=== PATIENT | male | born 1950 | race Caucasian/White ===

== ENCOUNTER → 2018-06-06 10:05 | Outpatient (CLI) | payer MEDICARE, OTHER, SELFPAY ==
[2018-06-06 11:25] LABS: Blood Urea Nitrogen 21 mg/dL (9-20); Estimated Glomerular Filt Rate > 60.0 mL/min (>60)
== END ==
PROVIDERS: Visit Provider Urology
DX: N39.0 Urinary tract infection, site not specified (principal)
CPT/HCPCS: 36415; 82565; 84520

== ENCOUNTER → 2018-06-07 12:07 | Outpatient (CLI) | payer MEDICARE, OTHER, SELFPAY ==
--- NOTE | 2018-06-07 | DI.CT.S_ITS ---
PROCEDURE: CT ABDOMEN PELVIS WO/W CON INDICATIONS: urinary infections TECHNIQUE: Optional 5 mm thick noncontrast images acquired from the diaphragm to the symphysis pubis. After the administration of intravenous contrast, 5 mm thick images acquired from the diaphragm to the symphysis pubis after a 10-minute delay. 2 mm thick coronal and sagittal reformats were then performed of the kidneys and ureters. For radiation dose reduction, the following was used: automated exposure control, adjustment of mA and/or kV according to patient size. COMPARISON: None. FINDINGS: Image quality: Excellent. Lung bases: Lung bases are clear. Heart size is normal. Urinary system: Both kidneys are normal in size, without hydronephrosis or nephrolithiasis on pre-contrast images. No perinephric fat stranding. There is normal bilateral renal enhancement. Renal calyces appear normal in morphology when filled with contrast. Opacified portions of both ureters demonstrate normal caliber. Bladder wall thickness is normal but there are multiple lateral and posterior bladder diverticula the largest of which is located posteriorly at the midline, and measuring up to 3.6 cm in maximal dimension.. No calcified bladder stones. Other solid organs: Liver is normal in size and enhancement. Gallbladder appears normal. Biliary system is non dilated. Pancreas enhances normally. Spleen is normal in size and enhancement. No adrenal nodules. Peritoneum and bowel: Bowel loops demonstrate normal wall thickness and caliber. No free fluid or air. Nodes and vessels: No retroperitoneal or mesenteric adenopathy by size criteria. Aorta and inferior vena cava are normal in size. Abdominal wall: No ventral hernias. Pelvis: No pathologic free pelvic fluid. No inguinal hernias or adenopathy. Bones: No suspicious bony lesions. No vertebral body compression fractures. IMPRESSION: No hydronephrosis or nephrolithiasis is found. Bladder diverticula are prominent in this patient, small and moderate in size in the largest measuring 3.6 cm. No adjacent inflammation is seen. The source of recurrent urinary tract infections otherwise is not found. Dictated by: Hiram Javier M.D. on 06/07/2018 at 14:51 Approved by: Hiram Javier M.D. on 06/07/2018 at 14:55
== END ==
PROVIDERS: Visit Provider Physician Assistant
DX: N39.0 Urinary tract infection, site not specified (principal); N32.3 Diverticulum of bladder
CPT/HCPCS: 74178; Q9967

== ENCOUNTER → 2018-07-27 10:50 | Outpatient (CLI) | payer MEDICARE, OTHER, SELFPAY ==
[2018-07-27 13:09] LABS: Alanine Aminotransferase 34 IU/L (21-72); Albumin 4.4 g/dL (3.5-5.0); Albumin Globulin Ratio 2.1 (1.0-2.8); Alkaline Phosphatase 48 U/L (38-126); Aspartate Aminotransferase 28 IU/L (17-59); BUN Creatinine Ratio 21.1 (6-22); Bilirubin Total 0.7 mg/dL (0.2-1.3); Blood Urea Nitrogen 19 mg/dL (9-20); Calcium 9.1 mg/dL (8.4-10.2); Carbon Dioxide 30 mmol/L (22-32); Chloride 103 mmol/L (98-107); Estimated Glomerular Filt Rate > 60.0 mL/min (>60); Globulin 2.1 g/dL (1.7-4.1); Glucose 102 mg/dL (80-110); HEMOLYSIS < 15 (0-50); Magnesium 2.1 mg/dL (1.6-2.3); Potassium 5.3 mmol/L (3.4-5.1); Sodium 143 mmol/L (137-145); Total Protein 6.5 g/dL (6.3-8.2)
[2018-07-31 08:55] LABS: Lipoprofile NMR SEE SEPERATE REPORT
== END ==
PROVIDERS: Visit Provider Specialist
DX: E78.2 Mixed hyperlipidemia (principal); I49.9 Cardiac arrhythmia, unspecified; I47.1 Supraventricular tachycardia
CPT/HCPCS: 36415; 80053; 83704; 83735

== ENCOUNTER → 2019-01-22 15:27 | Outpatient (CLI) | payer MEDICARE, OTHER, SELFPAY ==
[2019-01-22 17:04] LABS: Alanine Aminotransferase 50 IU/L (21-72); Albumin 4.5 g/dL (3.5-5.0); Alkaline Phosphatase 57 U/L (38-126); Aspartate Aminotransferase 48 IU/L (17-59); BUN Creatinine Ratio 18.9 (6-22); Blood Urea Nitrogen 17 mg/dL (9-20); Calcium 9.4 mg/dL (8.4-10.2); Carbon Dioxide 28 mmol/L (22-32); Chloride 105 mmol/L (98-107); Cholesterol 165 mg/dL (140-199); Estimated Glomerular Filt Rate > 60.0 mL/min (>60); Globulin 2.2 g/dL (1.7-4.1); Glucose 92 mg/dL (80-110); HDL Cholesterol 92 mg/dL (40-60); HEMOLYSIS < 15 (0-50); LDL Cholesterol Calculated 62 mg/dL (<100); Magnesium 1.9 mg/dL (1.6-2.3); Potassium 4.3 mmol/L (3.4-5.1); Sodium 141 mmol/L (137-145); Total Protein 6.7 g/dL (6.3-8.2); Triglycerides 54 mg/dL (35-150)
[2019-01-24 09:11] LABS: Lipoprofile NMR SEE SEPERATE REPORT
== END ==
PROVIDERS: Visit Provider Physician Assistant Medical
DX: I10 Essential (primary) hypertension (principal); E78.2 Mixed hyperlipidemia
CPT/HCPCS: 36415; 80053; 80061; 83704; 83735

== ENCOUNTER → 2019-05-25 11:22 | Outpatient (CLI) | payer MEDICARE, OTHER, SELFPAY ==
[2019-05-25 13:37] LABS: Prostate Specific Antigen 0.561 ng/mL (0.10-4.00)
== END ==
PROVIDERS: Visit Provider Physician Assistant
DX: N40.0 Benign prostatic hyperplasia without lower urinary tract symptoms (principal)
CPT/HCPCS: 36415; 84153

== ENCOUNTER → 2019-06-21 13:18 | Outpatient (CLI) | payer MEDICARE, OTHER, SELFPAY ==
--- NOTE | 2019-06-21 | DI.ECHO.S_ITS ---
[facility]---------+ [facility] +---------+ : : [address] : [place] : : : : [id number] : : : : Phone: [phone]+ Echocardiogram Report + + :Name: ANABEL MASCORRO Study Date: 06/21/2019 Height: 72 in : :[facility] Weight: 190 lb : : Gender: Male BSA: 2.1 m2 : :: 1950 Age: 68 yrs BP: 116/78 mmHg: :Reason For Study: Mitral Valve- Regurgitation : : Performed By: [facility] Staff : :Referring: PIYUSH BASURTO : + + Interpretation Summary The left ventricle is normal in size, wall thickness, and systolic function without any focal wall motion abnormalities with the ejection fraction visually estimated to be 65-70%. Diastolic parameters suggest a relaxation abnormality of the left ventricle, consistent with probable normal filling pressures, although perhaps slightly higher compared to the previous study. The right ventricle is normal in size and function and is unchanged compared to the previous study. The right ventricular systolic pressure is estimated to be at least 22 mmHg based on an estimated right atrial pressure of 3 mm Hg, and is likely unchanged from the previous study. The left atrium is borderline dilated and is unchanged compared to the previous study. The right atrium is mildly dilated and is mildly increased compared to the previous study. The mitral valve leaflets appear moderately thickened with mild bileaflet prolapse, anterior leaflet more prominent than posterior leaflet, that appears unchanged from the previous study and producing moderate mitral regurgitation with an eccentric jet of mitral regurgitation that is directed posterolaterally. This appears similar, perhaps slightly more prominent, compared to the previous study. There is mild pulmonic regurgitation. There is no other significant valvular heart disease. The aortic root is mildly dilated and the ascending aorta is at the upper limits of normal in size but both are grossly unchanged compared to the previous study. Procedure: A two-dimensional transthoracic echocardiogram with color flow and Doppler was performed. The study quality was technically adequate. Prior echo performed on 07/25/18. The patient was in normal sinus rhythm during the exam. Left Ventricle: The left ventricle is normal in size, wall thickness, and systolic function without any focal wall motion abnormalities. The ejection fraction is estimated to be 65-70%. Diastolic parameters suggest a relaxation abnormality of the left ventricle, consistent with probable normal filling pressures. This is although perhaps slightly higher compared to the previous study. Right Ventricle: The right ventricle is normal in size and function. This is unchanged compared to the previous study. Atria: The left atrium is borderline dilated. This is unchanged compared to the previous study. The right atrium is mildly dilated. This is mildly increased compared to the previous study. The interatrial septum is intact with no evidence for an atrial septal defect. Mitral Valve: The mitral valve leaflets appear moderately thickened, but open well. There is mild mitral valve prolapse. 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 There is moderate mitral regurgitation. There is an eccentric jet of mitral regurgitation that is directed posterolateral. This is similar, perhaps slightly more prominent, compared to the previous study. Aortic Valve: The aortic valve is trileaflet. The aortic valve opens well. There is trace aortic regurgitation. Tricuspid Valve: The tricuspid valve is normal in structure and function. There is trace tricuspid regurgitation. The right ventricular systolic pressure is estimated to be at least 22 mmHg based on an estimated right atrial pressure of 3 mm Hg. Pulmonic Valve: The pulmonic valve is normal in structure and function. There is mild pulmonic regurgitation. There is no other significant valvular heart disease. Great Vessels: The aortic root is mildly dilated. The ascending aorta is at the upper limits of normal in size. This is unchanged compared to the previous study. The pulmonary artery is normal size. The IVC is of normal diameter and collapses greater than 50% with a sniff. This suggests a low right atrial pressure of 3 mm Hg. Pericardium/ Pleura There is no pericardial effusion. There is no pleural effusion. MMode/2D Measurements & Calculations LVIDd: 5.2 cm LVOT diam: 2.2 cm LVIDs: 3.1 cm Ao root diam: 3.7 cm FS: 40.3 % asc Aorta Diam: 3.3 cm EPSS: 0.40 cm IVSd: 0.91 cm LVPWd: 1.0 cm LV michele. diameter/BSA (cm/m^2): 2.5 LV sys. diameter/BSA (cm/m^2): 1.5 LA A2 area: 19.2 cm2 RA long axis: 5.8 cm LA A4 area: 25.0 cm2 RA area: 22.9 cm2 LA length (vol): 6.0 cm RA vol: 76.7 ml LA vol: 68.2 ml RA : 36.8 ml/m2 LA vol index: 32.7 ml/m2 TAPSE: 3.2 cm Doppler Measurements & Calculations Ao V2 max: 147.6 cm/sec LVOT Max Vargas: 113.9 cm/sec Ao V2 mean: 88.9 cm/sec LV V1 max P.2 mmHg Ao max P.7 mmHg LV V1 VTI: 25.6 cm Ao mean P.9 mmHg JAYJAY(I,D): 3.1 cm2 Ao V2 VTI: 30.6 cm JAYJAY(V,D): 2.9 cm2 sev ratio: 0.84 JAYJAY indexed to BSA (cm^2/m^2): 1.5 MV E max vargas: 109.0 cm/sec TR max vargas: 217.1 cm/sec MV A max vargas: 127.1 cm/sec TR max P.9 mmHg MV E/A: 0.86 PA V2 max: 56.5 cm/sec Med Peak E' Vargas: 6.9 cm/sec PA V2 mean: 42.1 cm/sec E/E' med: 15.8 PA mean P.80 mmHg Lat Peak E' Vargas: 6.5 cm/sec PA Accel Time: 0.17 sec E/E' lat: 16.8 E/e' average: 16.3 MV dec time: 0.39 sec SV(LVOT): 95.7 ml Reading Physician:AM
== END ==
PROVIDERS: Visit Provider Specialist
DX: I34.0 Nonrheumatic mitral (valve) insufficiency (principal); I34.1 Nonrheumatic mitral (valve) prolapse; I37.1 Nonrheumatic pulmonary valve insufficiency; I47.1 Supraventricular tachycardia; I49.9 Cardiac arrhythmia, unspecified; I10 Essential (primary) hypertension
CPT/HCPCS: 93306

== ENCOUNTER → 2019-06-22 08:43 | Outpatient (CLI) | payer MEDICARE, OTHER, SELFPAY ==
[2019-06-22 10:17] LABS: Alanine Aminotransferase 42 IU/L (<50); Albumin 4.3 g/dL (3.5-5.0); Alkaline Phosphatase 54 U/L (38-126); Aspartate Aminotransferase 39 IU/L (17-59); Bilirubin Total 0.7 mg/dL (0.2-1.3); Blood Urea Nitrogen 16 mg/dL (9-20); Calcium 9.2 mg/dL (8.4-10.2); Carbon Dioxide 28 mmol/L (22-32); Chloride 102 mmol/L (98-107); Estimated Glomerular Filt Rate > 60.0 mL/min (>60); Globulin 2.1 g/dL (1.7-4.1); Glucose 116 mg/dL (80-110); HEMOLYSIS < 15 (0-50); Potassium 4.6 mmol/L (3.4-5.1); Sodium 138 mmol/L (137-145); Total Protein 6.4 g/dL (6.3-8.2)
[2019-06-25 10:26] LABS: Lipoprofile NMR SEE SEPARATE REPORTS
== END ==
PROVIDERS: Visit Provider Specialist
DX: I49.9 Cardiac arrhythmia, unspecified (principal); I10 Essential (primary) hypertension; I47.1 Supraventricular tachycardia; E78.2 Mixed hyperlipidemia
CPT/HCPCS: 36415; 80053; 83704; 83735

== ENCOUNTER → 2020-03-24 08:23 | Outpatient (CLI) | payer MEDICARE, OTHER, SELFPAY ==
[2020-03-24 09:04] LABS: Add Manual Diff / Slide Review NO; Basophils Absolute Auto 0 /uL (0-100); Basophils Percent Auto 0.2 % (0-2); Eosinophils Absolute Auto 300 /uL (0-450); Eosinophils Percent Auto 6.8 % (2-4); Hematocrit 41.9 % (41-53); Hemoglobin 14.6 g/dL (13.5-17.5); Lymphocytes Absolute Auto 1000 /uL (1100-4500); Lymphocytes Percent Auto 25.2 % (25-40); Mean Corpuscular HGB Conc 34.8 % (30-36); Mean Corpuscular Hemoglobin 30.4 PG (26-34); Mean Corpuscular Volume 87.4 fL (80-100); Monocytes Absolute Auto 300 /uL (0-900); Monocytes Percent Auto 8.1 % (3-14); Neutrophils Absolute Auto 2400 /uL (1500-7000); Neutrophils Percent Auto 59.7 % (50-75); Platelet Count 185 X10^3/uL (150-400); Red Blood Cell Count 4.79 X10^6/uL (4.5-5.9); Red Cell Distribution Width 14.1 % (11.6-14.8); White Blood Cell Count 4.1 X10^3/uL (4.5-11.0)
[2020-03-24 09:32] LABS: Alanine Aminotransferase 44 IU/L (<50); Albumin 4.2 g/dL (3.5-5.0); Albumin Globulin Ratio 1.9 (1.0-2.8); Alkaline Phosphatase 55 U/L (38-126); Aspartate Aminotransferase 39 IU/L (17-59); BUN Creatinine Ratio 20.5 (6-22); Bilirubin Total 0.8 mg/dL (0.2-1.3); Blood Urea Nitrogen 18 mg/dL (9-20); Carbon Dioxide 26 mmol/L (22-32); Chloride 105 mmol/L (98-107); Estimated Glomerular Filt Rate > 60.0 mL/min (>60); Globulin 2.2 g/dL (1.7-4.1); Glucose 123 mg/dL (80-110); HEMOLYSIS < 15 (0-50); Potassium 4.4 mmol/L (3.4-5.1); Sodium 137 mmol/L (137-145); Total Protein 6.4 g/dL (6.3-8.2)
[2020-03-26 07:36] LABS: Cholesterol, Total 156 mg/dL (100-199); HDL-Cholesterol 76 mg/dL (>39); HDL-Particle (Total) 41.4 umol/L (>=30.5); Historical Reading Comment: (.); LDL Particle 853 nmol/L (<1000); LDL Size 20.7 nm (>20.5); LDL-Cholsterol 67 mg/dL (0-99); LP-IR Score 40 (<=45); Small LDL- Particle 488 nmol/L (<=527); Triglycerides 63 mg/dL (0-149)
== END ==
PROVIDERS: Referring Provider Specialist; Visit Provider Specialist
DX: I47.1 Supraventricular tachycardia (principal); E78.2 Mixed hyperlipidemia; I10 Essential (primary) hypertension
CPT/HCPCS: 36415; 80053; 80061; 83704; 83735; 85025

== ENCOUNTER → 2020-05-19 10:46 | Outpatient (CLI) | payer MEDICARE, OTHER, SELFPAY ==
[2020-05-19 12:49] LABS: Prostate Specific Antigen 0.489 ng/mL (0.10-4.00)
== END ==
PROVIDERS: Referring Provider Physician Assistant; Visit Provider Physician Assistant
DX: N40.0 Benign prostatic hyperplasia without lower urinary tract symptoms (principal)
CPT/HCPCS: 36415; 84153

== ENCOUNTER → 2020-09-02 07:42 | Outpatient (CLI) | payer MEDICARE, OTHER, SELFPAY ==
[2020-09-02] MEDS: COVID-19 VACC #1, MRNA(MOD) 100 MCG/0.5 ML VIAL IM (07:46)
== END ==
PROVIDERS: Visit Provider Internal Medicine
DX: Z23 Encounter for immunization (principal)
CPT/HCPCS: 0011A; 91301

== ENCOUNTER → 2020-09-30 07:34 | Outpatient (CLI) | payer MEDICARE, OTHER, SELFPAY ==
[2020-09-30] MEDS: COVID-19 VACC #2, MRNA(MOD) 100 MCG/0.5 ML VIAL IM (07:48)
== END ==
PROVIDERS: Visit Provider Internal Medicine
DX: Z23 Encounter for immunization (principal)
CPT/HCPCS: 0012A; 91301

== ENCOUNTER → 2021-02-23 08:27 | Outpatient (CLI) | payer MEDICARE, OTHER, SELFPAY ==
[2021-02-23 09:23] LABS: Hemoglobin A1C% w Est Avg Glu 4.9 % (4.0-6.0)
[2021-02-23 09:43] LABS: Alanine Aminotransferase 38 IU/L (<50); Albumin 3.9 g/dL (3.5-5.0); Albumin Globulin Ratio 1.9 (1.0-2.8); Alkaline Phosphatase 49 U/L (38-126); Aspartate Aminotransferase 41 IU/L (17-59); BUN Creatinine Ratio 16.3 (6-22); Bilirubin Total 0.6 mg/dL (0.2-1.3); Blood Urea Nitrogen 15 mg/dL (9-20); Calcium 9.1 mg/dL (8.4-10.2); Carbon Dioxide 29 mmol/L (22-32); Chloride 105 mmol/L (98-107); Estimated Glomerular Filt Rate > 60.0 mL/min (>60); Globulin 2.1 g/dL (1.7-4.1); Glucose 121 mg/dL (80-110); HEMOLYSIS < 15 (0-50); Magnesium 1.9 mg/dL (1.6-2.3); Potassium 5.2 mmol/L (3.4-5.1); Sodium 138 mmol/L (137-145)
[2021-02-25 07:36] LABS: Cholesterol, Total 146 mg/dL (100-199); HDL-Cholesterol 71 mg/dL (>39); HDL-Particle (Total) 39.4 umol/L (>=30.5); LDL Particle 537 nmol/L (<1000); LDL-Cholsterol 64 mg/dL (0-99); LP-IR Score 30 (<=45); Small LDL- Particle <90 nmol/L (<=527); Triglycerides 49 mg/dL (0-149)
== END ==
PROVIDERS: PCP Family Medicine; Visit Provider Specialist
DX: E78.00 Pure hypercholesterolemia, unspecified (principal); R73.9 Hyperglycemia, unspecified; I10 Essential (primary) hypertension; E78.5 Hyperlipidemia, unspecified
CPT/HCPCS: 36415; 80053; 80061; 83036; 83704; 83735

== ENCOUNTER 2021-08-03 07:43 | Day surgery (SDC) | payer MEDICARE, OTHER, SELFPAY ==
[2021-08-03 08:06] VITALS: BP 165/95; PULSE 66; RESP 16; TEMP 36.6; O2SAT 99; BMI 25.7
[2021-08-03 08:24] LABS: COVID19 -Nasal RAPID Negative (Negative)
[2021-08-03] MEDS: LACTATED RINGERS 1,000 ML 84 ML IV (08:25)
--- NOTE | 2021-08-03 09:11 | PM.HP.1 ---
History of Present Illness History of Present Illness Date Patient Seen: 08/03/21 Time Patient Seen: 09:11 Date of Onset of Symptoms: 08/03/21 Chief complaint: DX COLONOSCOPY Narrative: H/o colon polyps. Last scope 10 years. No family hx or symptoms concerning for colon cancer Patient History Medical History (Updated 04/19/21 @ 21:35 by Ting Stack) Hyperglycemia Hyperlipidemia Hypertension Surgical History (Updated 04/19/21 @ 21:35 by Ting Stack) Anesthesia History of hernia repair (~2011) History of knee surgery (~1981) S/P TURP (~2013) Family & Social History Social History: household members spouse Tobacco & Substance use: Smoking Status Former smoker alcohol intake current alcohol intake frequency 0-2 drinks per day Substance Use Type does not use Meds Home Medications and Allergies Home Medications Medication Instructions Recorded Confirmed Type atorvastatin PO 02/13/21 02/13/21 History carvedilol 3.125 mg tablet 3.125 mg PO BID 02/13/21 02/13/21 History Allergies Allergy/AdvReac Type Severity Reaction Status Date / Time No Known Drug Allergies Allergy Verified 08/03/21 08:04 Exam Vital Signs (past 8 hours): - 08/03/21 08:06 Temperature 97.8 F Pulse Rate 66 Respiratory Rate 16 Blood Pressure 165/95 H Pulse Oximetry 99 Oxygen Delivery Method Room Air Const General: cooperative and healthy appearing HENMT Head: normal to inspection and atraumatic Eyes General: appearance normal, both eyes and all related structures Sclera: sclerae normal Neck Neck: normal visual inspection and trachea midline Chest Chest: normal inspection of the chest Resp Effort & Inspection: normal respiratory effort and able to speak in complete sentences Auscultation: clear to auscultation bilaterally Cardio Rate: regular rate Rhythm: regular rhythm GI Palpation: soft Skin General: no rashes or lesions noted Neuro General: patient alert and patient oriented x3 Cognition: normal cognition Extrem General: full ROM Psych Appearance: grossly normal Affect: normal affect Judgment: judgment good Objective Labs Labs: Laboratory Results - last 24 hr 08/03/21 07:33 SARS-CoV-2 (PCR) Negative Assessment & Plan Assessment & Plan narrative: H/o colon polyps colonoscopy with moderate sedation COVID-19 COVID-19 status: Negative Time Spent With Patient Critical Care time: I spent a total of [] minutes of critical care time on this patient's care today; this time is exclusive of procedural time.
[2021-08-03] MEDS: MIDAZOLAM 5 MG/5 ML VIAL IV (09:15)
[2021-08-03] MEDS: fentaNYL 250 MCG/5 ML INJ IV (09:23)
--- NOTE | 2021-08-03 09:29 | P.OP.ENDO_ITS ---
Operative Date/Time/Diagnoses Date of procedure: 08/03/21 Time of procedure: 09:29 Pre-op diagnosis: h/o colon polyps (likely benign) Post-op diagnosis: same Procedure & Clinicians Study performed: Colonoscopy with moderate sedation Same procedure as scheduled: Yes Indications: History of colon polyps Surgeon: Valencia Rhoades Procedure Notes SCOAP/Timeout: Done Procedure in detail: Prep diagnosis: History of colon polyps Postop diagnosis: Same Operative procedure: Colonoscopy with moderate sedation Surgeon: Tsering Rhoades MD Findings: Pandiverticulosis, no polyps. Procedure: Patient placed in a lateral position. Rectal exam performed showing normal tone no masses. Colonoscope inserted into the rectum and advanced to ileocecal valve with minimal difficulty. Insufflation extractions scope inclu ding retroflex and the above findings. Impression: No polyps. Loya diverticulosis of the large variety Plan: Repeat colonoscopy 10 years unless otherwise indicated by change in clinical condition Findings: diverticulosis Specimen(s): none sent Complications: none Impression: Significant diverticulosis throughout the colon. No polyps Post-procedure Recommendations: Colonscopy in 10 years Follow up: as needed Disposition: PACU
[2021-08-03 09:34] VITALS: BP 138/80; PULSE 61; RESP 12; TEMP 36.4; O2SAT 93
[2021-08-03 09:38] VITALS: BP 128/81; PULSE 59; RESP 14; O2SAT 94
[2021-08-03 09:43] VITALS: BP 127/80; PULSE 61; RESP 15; O2SAT 96
[2021-08-03 09:48] VITALS: BP 132/90; PULSE 65; RESP 16; TEMP 36.4; O2SAT 95
[2021-08-03 09:55] VITALS: BP 142/82; PULSE 61; RESP 16; O2SAT 97
== END 2021-08-03 10:07 | disposition home or self-care (01) ==
PROVIDERS: PCP Family Medicine; Referring Provider Surgery; Visit Provider Surgery
PROC: 0DJD8ZZ Inspection of Lower Intestinal Tract, Via Natural or Artificial Opening Endoscopic (ICD-10-PCS; CPT 45378; principal; 2021-08-03 09:15)
DX: Z12.11 Encounter for screening for malignant neoplasm of colon (principal); Z86.010 Personal history of colon polyps; I10 Essential (primary) hypertension; E78.5 Hyperlipidemia, unspecified; K57.30 Diverticulosis of large intestine without perforation or abscess without bleeding
CPT/HCPCS: G0105; 87635; J2250; J3010

== ENCOUNTER → 2021-08-11 12:28 | Outpatient (CLI) | payer MEDICARE, OTHER, SELFPAY | PROVIDERS: PCP Family Medicine; Referring Provider Urology; Visit Provider Urology | DX: N40.1 Benign prostatic hyperplasia with lower urinary tract symptoms (principal) | CPT/HCPCS: 36415; 84153 ==

== ENCOUNTER → 2021-11-09 15:40 | Outpatient (CLI) | payer MEDICARE, OTHER, SELFPAY ==
[2021-11-10 12:12] LABS: Rubeola Measles IgG > 300.0 AU/mL (Immune >16.4)
[2021-11-11 10:35] LABS: QuantiFERON Mitogen Value >10.00 IU/mL (.); QuantiFERON Nil Value 0.09 IU/mL (.); QuantiFERON TB Gold Plus Negative (Negative); QuantiFERON TB1 Ag Value 0.07 IU/mL (.); QuantiFERON TB2 Ag Value 0.05 IU/mL (.)
== END ==
PROVIDERS: PCP Family Medicine; Referring Provider Family Medicine; Visit Provider Family Medicine
DX: Z11.1 Encounter for screening for respiratory tuberculosis (principal); Z28.39 Other underimmunization status
CPT/HCPCS: 36415; 86480; 86735; 86762; 86765

== ENCOUNTER → 2022-03-29 10:20 | Outpatient (CLI) | payer MEDICARE, OTHER, SELFPAY ==
--- NOTE | 2022-03-29 | DI.ECHO.S_ITS ---
[facility]---------+ [facility] +---------+ : : [address] : [place] : : : : [id number] : : : : Phone: [phone]+ Echocardiogram Report + + :Name: ANABEL MASCORRO Study Date: 03/29/2022 Height: 72 in : :[facility] ReadingLocation: Weight: 195 lb : : Gender: Male BSA: 2.1 m2 : :: 1950 Age: 71 yrs BP: 158/100 mmHg: :Reason For Study: Mitral Valve- Regurgitation : :Ordering Physician: SB, : :PIYUSH Performed By: Christiano Luna : :Referring: PIYUSH BASURTO : + + Interpretation Summary Left ventricular size and function remain normal with an estimated ejection fraction of 60 to 65% without any focal abnormality and appears unchanged from the previous study. Wall thickness remains normal with a probable diastolic relaxation abnormality with probable normal filling pressures, possibly slightly lower compared to the previous exam. The right ventricle remains normal and unchanged from the previous study. Right ventricular systolic pressure cannot be estimated but CVP is likely around 8 mmHg, possibly slightly higher compared to the previous study. There is borderline left atrial enlargement which is unchanged. The right atrium measures normal in size and smaller compared to the previous study. The mitral valve leaflets are moderately thickened with bileaflet mitral valve prolapse that appears unchanged from the previous study. Mild mitral regurgitation is apparent but appears less impressive compared to the previous exam although it is less well visualized and characterized compared to the previous exam. There is no other significant valvular disease. The aortic root and ascending aorta are borderline enlarged but unchanged from the previous study. Procedure: A two-dimensional transthoracic echocardiogram with color flow and Doppler was performed. The study quality was technically adequate. Comparison is made with the echocardiogram of 06/21/2019. The patient was in normal sinus rhythm during the exam. Left Ventricle: The left ventricle is normal in size and wall thickness. The ejection fraction is estimated to be 60-65%. This is unchanged compared to the previous study. Diastolic function could not be accurately assessed due to unobtainable data. Diastolic parameters suggest a relaxation abnormality of the left ventricle, consistent with probable normal filling pressures. This is possibly lower compared to the previous study. Right Ventricle: The right ventricle is normal in size and function. This is unchanged compared to the previous study. Atria: The left atrium is borderline dilated. This is unchanged compared to the previous study. Right atrial size is normal. XAVI is 24.7 mL/mA? compared to 36.8 mL/mA? previously. The interatrial septum grossly appears intact with no obvious evidence for an atrial septal defect. Mitral Valve: The mitral valve leaflets appear moderately thickened, but open well. There is mild mitral valve prolapse. There is mild mitral regurgitation. This is less impressive, but less well chararcterized and visualized compared to the previous study. Aortic Valve: The aortic valve is trileaflet. The aortic valve is slightly calcified. The aortic valve opens well. There is trace aortic regurgitation. Tricuspid Valve: The tricuspid valve is normal in structure and function. There is a trace or physiologic amount of tricuspid regurgitation. This is unchanged compared to the previous study. Pulmonary artery pressures cannot be estimated because of the lack of a measurable TR jet velocity but the IVC suggests a CVP of around 8 mmHg. This is possibly slightly higher compared to the previous study. Pulmonic Valve: The pulmonic valve is normal in structure and function. There is a trace or physiologic amount of pulmonic regurgitation. Great Vessels: The aortic root is borderline dilated. The ascending aorta is at the upper limits of normal in size. This is unchanged compared to the previous study. The IVC is dilated (diameter is greater than 2.1 cm) yet it collapses greater than 50% with a sniff. This suggests a right atrial pressure of 8 mm Hg. Pericardium/ Pleura There is no pericardial effusion. There is no pleural effusion. MMode/2D Measurements & Calculations LVIDd: 5.6 cm LVOT diam: 2.2 cm LVIDs: 3.4 cm Ao root diam: 3.7 cm FS: 39.3 % asc Aorta Diam: 3.3 cm IVSd: 0.90 cm LVPWd: 0.90 cm LV michele. diameter/BSA (cm/m^2): 2.7 LV sys. diameter/BSA (cm/m^2): 1.6 LA dimension: 3.9 cm RA long axis: 5.6 cm LA A2 area: 23.5 cm2 LA A4 area: 20.8 cm2 LA length (vol): 5.7 cm LA vol: 73.4 ml LA vol index: 34.8 ml/m2 TAPSE_phl: 3.0 cm Doppler Measurements & Calculations Ao V2 max: 118.0 cm/sec LVOT Max Vargas: 117.0 cm/sec Ao V2 mean: 86.8 cm/sec LV V1 max P.5 mmHg Ao max P.0 mmHg LV V1 VTI: 23.9 cm Ao mean P.0 mmHg JAYJAY(I,D): 3.8 cm2 Ao V2 VTI: 24.2 cm JAYJAY(V,D): 3.8 cm2 sev ratio: 0.99 JAYJAY indexed to BSA (cm^2/m^2): 1.8 MV E max vargas: 85.4 cm/sec SV(LVOT): 90.9 ml MV A max vargas: 109.0 cm/sec MV E/A: 0.78 Med Peak E' Vargas: 8.1 cm/sec E/E' med: 10.5 Lat Peak E' Vargas: 9.7 cm/sec E/E' lat: 8.8 E/e' average: 9.7 MV dec time: 0.28 sec AV VR_phl: 0.99 MV P1/2t-pr_phl: 81.0 msec JAYJAY(VTI)/BSA_phl: 1.8 Reading Physician:09:18 AM
[2022-03-29 12:08] LABS: Alanine Aminotransferase 36 IU/L (<50); Albumin 4.2 g/dL (3.5-5.0); Albumin Globulin Ratio 1.9 (1.0-2.8); Alkaline Phosphatase 53 U/L (38-126); Aspartate Aminotransferase 35 IU/L (17-59); Bilirubin Total 1.1 mg/dL (0.2-1.3); Blood Urea Nitrogen 12 mg/dL (9-20); Calcium 8.6 mg/dL (8.4-10.2); Carbon Dioxide 27 mmol/L (22-32); Chloride 105 mmol/L (98-107); Estimated Glomerular Filt Rate > 60 mL/min (>60); Globulin 2.2 g/dL (1.7-4.1); Glucose 106 mg/dL (80-110); HEMOLYSIS < 15 (0-50); Magnesium 2.2 mg/dL (1.6-2.3); Potassium 4.2 mmol/L (3.4-5.1); Sodium 138 mmol/L (137-145); Total Protein 6.4 g/dL (6.3-8.2)
[2022-03-31 08:58] LABS: Cholesterol, Total 148 mg/dL (100-199); HDL-Cholesterol 67 mg/dL (>39); HDL-Particle (Total) 35.9 umol/L (>=30.5); LDL Particle 629 nmol/L (<1000); LDL Size 20.9 nm (>20.5); LDL-Cholsterol 65 mg/dL (0-99); LP-IR Score 39 (<=45); Small LDL- Particle 167 nmol/L (<=527); Triglycerides 88 mg/dL (0-149)
== END ==
PROVIDERS: PCP Family Medicine; Referring Provider Specialist; Visit Provider Specialist
DX: I34.1 Nonrheumatic mitral (valve) prolapse (principal); I10 Essential (primary) hypertension; I34.0 Nonrheumatic mitral (valve) insufficiency; E78.00 Pure hypercholesterolemia, unspecified
CPT/HCPCS: 36415; 80053; 80061; 83704; 83735; 93306

== ENCOUNTER → 2022-09-30 12:57 | Outpatient (CLI) | payer MEDICARE, OTHER, SELFPAY ==
[2022-09-30 14:11] LABS: Prostate Specific Antigen 0.515 ng/mL (0.10-4.00)
== END ==
PROVIDERS: PCP Family Medicine; Referring Provider Urology; Visit Provider Urology
DX: C61 Malignant neoplasm of prostate (principal); Z12.5 Encounter for screening for malignant neoplasm of prostate
CPT/HCPCS: 36415; 84153

== ENCOUNTER → 2022-12-01 10:24 | Outpatient (CLI) | payer MEDICARE, OTHER, SELFPAY ==
--- NOTE | 2022-12-01 10:43 | DI.RAD.S_ITS ---
PROCEDURE: XR CHEST 2V INDICATIONS: cough, sob TECHNIQUE: 2 views of the chest were acquired. COMPARISON: None. FINDINGS: Surgical changes and devices: None. Lungs and pleura: Possible mild bibasilar opacities are present. No pleural effusions. Mediastinum: Mediastinal contours are normal. Heart size is normal. Bones and chest wall: No suspicious bony abnormalities. Soft tissues appear unremarkable. IMPRESSION: Possible mild bibasilar opacities, representing atelectasis, aspiration, or early airspace disease. Consider future imaging surveillance to assess for resolution. Dictated by: Devon Muse M.D. on 12/01/2022 at 15:05 Approved by: Devon Muse M.D. on 12/01/2022 at 15:06
[2022-12-01 14:09] LABS: Influenza A - CEPHEID Flu A NEGATIVE (NEGATIVE); Influenza B - CEPHEID Flu B NEGATIVE (NEGATIVE); Respiratory Syncytial Virus Negative (Negative)
[2022-12-01 14:32] LABS: COVID-19 CEPHEID 4-PLEX PCR Negative (Negative)
== END ==
PROVIDERS: PCP Family Medicine; Visit Provider Family Medicine
DX: R05.9 Cough, unspecified (principal); R09.81 Nasal congestion; R09.89 Other specified symptoms and signs involving the circulatory and respiratory systems
CPT/HCPCS: 0241U; 71046

== ENCOUNTER → 2023-03-21 16:54 | Outpatient (CLI) | payer MEDICARE, OTHER, SELFPAY ==
[2023-03-21 18:30] LABS: Alanine Aminotransferase 36 IU/L (<50); Albumin 4.3 g/dL (3.5-5.0); Alkaline Phosphatase 61 U/L (38-126); Aspartate Aminotransferase 38 IU/L (17-59); BUN Creatinine Ratio 17.5 (6-22); Bilirubin Total 1.3 mg/dL (0.2-1.3); Blood Urea Nitrogen 17 mg/dL (9-20); Calcium 9.2 mg/dL (8.4-10.2); Carbon Dioxide 28 mmol/L (22-32); Chloride 104 mmol/L (98-107); Estimated Glomerular Filt Rate > 60 mL/min (>60); Globulin 2.2 g/dL (1.7-4.1); Glucose 95 mg/dL (80-110); HEMOLYSIS < 15 (0-50); Potassium 4.2 mmol/L (3.4-5.1); Sodium 139 mmol/L (137-145); Total Protein 6.5 g/dL (6.3-8.2)
[2023-03-24 11:16] LABS: Cholesterol, Total 146 mg/dL (100-199); HDL-Cholesterol 67 mg/dL (>39); LDL Particle 661 nmol/L (<1000); LDL Size 20.5 nm (>20.5); LDL-Cholsterol 66 mg/dL (0-99); LP-IR Score 32 (<=45); Small LDL- Particle 233 nmol/L (<=527); Triglycerides 62 mg/dL (0-149)
== END ==
PROVIDERS: PCP Family Medicine; Referring Provider Specialist; Visit Provider Specialist
DX: E78.00 Pure hypercholesterolemia, unspecified (principal)
CPT/HCPCS: 36415; 80053; 80061; 83704

== ENCOUNTER → 2024-03-29 11:05 | Outpatient (CLI) | payer MEDICARE, OTHER, SELFPAY ==
--- NOTE | 2024-03-29 11:09 | DI.CT.S_ITS ---
PROCEDURE: CT IVP A/P W/WO INDICATIONS: RETENTION OF URINE TECHNIQUE: Optional 5 mm thick noncontrast images acquired from the diaphragm to the symphysis pubis. After the administration of intravenous contrast, 5 mm thick images acquired from the diaphragm to the symphysis pubis after a 10-minute delay. 2 mm thick coronal and sagittal reformats were then performed of the kidneys and ureters. For radiation dose reduction, the following was used: automated exposure control, adjustment of mA and/or kV according to patient size. COMPARISON: None. FINDINGS: Image quality: Diagnostic. Kidneys and Ureters: Both kidneys are normal in size, without hydronephrosis or nephrolithiasis. No perinephric fat stranding. There is normal bilateral renal enhancement. Renal calyces appear normal in morphology when filled with contrast. No urothelial abnormality. No solid renal masses. Opacified portions of both ureters demonstrate normal caliber Bladder: No calcified bladder stones. Numerous diverticula varying sizes throughout the urinary bladder. OTHER: Lower chest: Unremarkable. Liver: No solid mass. Several scattered tiny lucent lesions throughout the right hepatic lobe likely cysts versus hemangiomas. Gallbladder: No radiopaque gallstones or wall thickening. Biliary ducts: No biliary dilation. Pancreas: No ductal dilation. Spleen: Size is within normal limits. Adrenal Glands: No adrenal nodules. Stomach and Bowel: Normal colonic caliber, without significant wall thickening. Colonic diverticulosis without evidence of diverticulitis. Normal appearing appendix. Peritoneum: No abnormal intraperitoneal fluid. No free air. Ventral Wall: Small umbilical hernia containing partial loop of small bowel. Abdominal Nodes: No retroperitoneal or mesenteric adenopathy by size criteria. Vessels: Aorta and inferior vena cava are normal in size. PELVIS: Pelvic Organs: Unremarkable. Pelvic Nodes: No enlarged lymph nodes. Miscellaneous: No inguinal hernias are seen. Bones: No aggressive osseous abnormality. IMPRESSION: 1. No urinary calculi. No solid renal mass or urothelial abnormality. 2. Numerous bladder diverticuli. REMINDER: Report Hounsfield units on all stones 5 mm or larger, 3 per kidney max Dictated by: Javon Cannon M.D. on 03/29/2024 at 17:36 Approved by: Javon Cannon M.D. on 03/29/2024 at 17:44
[2024-03-29 11:45] LABS: Estimated Glomerular Filt Rate > 60 mL/min (>60)
== END ==
PROVIDERS: Radiology Diagnostic Radiology; PCP Family Medicine; Referring Provider Family Medicine; Visit Provider Family Medicine
DX: N32.3 Diverticulum of bladder (principal); K42.9 Umbilical hernia without obstruction or gangrene; K57.90 Diverticulosis of intestine, part unspecified, without perforation or abscess without bleeding; R39.14 Feeling of incomplete bladder emptying; R73.9 Hyperglycemia, unspecified
CPT/HCPCS: 36415; 74178; 82565; Q9967

== ENCOUNTER → 2024-05-21 09:40 | Outpatient (CLI) | payer MEDICARE, OTHER, SELFPAY ==
[2024-05-21 13:14] LABS: Alanine Aminotransferase 48 IU/L (<50); Albumin 4.2 g/dL (3.5-5.0); Albumin Globulin Ratio 2.1 (1.0-2.8); Alkaline Phosphatase 60 U/L (38-126); Aspartate Aminotransferase 44 IU/L (17-59); BUN Creatinine Ratio 12.4 (6-22); Blood Urea Nitrogen 11 mg/dL (9-20); Calcium 9.1 mg/dL (8.4-10.2); Carbon Dioxide 28 mmol/L (22-32); Chloride 104 mmol/L (98-107); Cholesterol 160 mg/dL (140-199); Estimated Glomerular Filt Rate > 60 mL/min (>60); Glucose 102 mg/dL (80-110); HDL Cholesterol 75 mg/dL (40-60); HEMOLYSIS < 15 (0-50); LDL Cholesterol Calculated 73 mg/dL (<100); Magnesium 1.9 mg/dL (1.6-2.3); Sodium 138 mmol/L (137-145); Total Protein 6.2 g/dL (6.3-8.2); Triglycerides 59 mg/dL (35-150)
== END ==
PROVIDERS: PCP Family Medicine; Referring Provider Specialist; Visit Provider Specialist
DX: I10 Essential (primary) hypertension (principal); E78.00 Pure hypercholesterolemia, unspecified
CPT/HCPCS: 36415; 80053; 80061; 83735

== ENCOUNTER → 2025-04-29 09:18 | Outpatient (CLI) | payer MEDICARE, OTHER, SELFPAY ==
[2025-04-29 09:54] LABS: Add Manual Diff / Slide Review NO; Hematocrit 42.7 % (41-53); Hemoglobin 14.9 g/dL (13.5-17.5); Lymphocytes Absolute Auto 1100 /uL (1100-4500); Mean Corpuscular HGB Conc 34.9 % (30-36); Mean Corpuscular Hemoglobin 30.3 PG (26-34); Mean Corpuscular Volume 86.7 fL (80-100); Platelet Count 177 X10^3/uL (150-400)
[2025-04-29 10:13] LABS: Alanine Aminotransferase 36 IU/L (<50); Albumin 4.4 g/dL (3.5-5.0); Albumin Globulin Ratio 1.9 (1.0-2.8); Alkaline Phosphatase 55 U/L (38-126); Blood Urea Nitrogen 14 mg/dL (9-20); Calcium 9.4 mg/dL (8.4-10.2); Carbon Dioxide 28 mmol/L (22-32); Chloride 104 mmol/L (98-107); Estimated Glomerular Filt Rate > 60 mL/min (>60); Globulin 2.3 g/dL (1.7-4.1); Glucose 115 mg/dL (70-99); HEMOLYSIS < 15 (0-50); Potassium 4.7 mmol/L (3.4-5.1); Sodium 138 mmol/L (137-145); Total Protein 6.7 g/dL (6.3-8.2)
[2025-04-29 10:49] LABS: TSH w/ Reflex to FT4 1.57 uIU/mL (0.47-4.68)
== END ==
PROVIDERS: PCP Family Medicine; Referring Provider Specialist; Visit Provider Specialist
DX: Z12.5 Encounter for screening for malignant neoplasm of prostate (principal); I10 Essential (primary) hypertension; K57.90 Diverticulosis of intestine, part unspecified, without perforation or abscess without bleeding; R73.9 Hyperglycemia, unspecified; E78.2 Mixed hyperlipidemia
CPT/HCPCS: 36415; 80053; 84443; 85025; G0103

== ENCOUNTER → 2025-05-06 09:15 | Outpatient (CLI) | payer MEDICARE, OTHER, SELFPAY ==
--- NOTE | 2025-05-08 10:21 | DI.ECHO.S_ITS ---
+ + :Name: ANABEL MASCORRO? Study Date: 05/06/2025? Height: 72 in :Hospital ?ReadingLocation:? Weight: 195 lb : ?Gender: Male?BSA: 2.1 m2??? :: 1950? Age: 74 yrs? BP: 159/95 mmHg :Reason For Study: MITRAL VALVE PROLAPSE :Ordering Physician: PIYUSH BASURTO? Performed By: Alma Sorto? :Referring: PIYUSH BASURTO? + + Interpretation Summary Left ventricular systolic function remains normal with an estimated ejection fraction of 60 to 65% without focal abnormality and appears unchanged from the previous study. Left ventricular volumes remain normal with an end-diastolic volume of 125 mL. There is evidence for elevated filling pressures, new from the previous study. The right ventricle is normal in size with systolic function at the lower limits of normal but unchanged from the previous study. Right ventricular systolic pressure cannot be estimated but CVP is likely 3 mmHg. There is moderate left atrial enlargement that measures larger compared to the previous exam and borderline right atrial enlargement that is grossly unchanged. There is moderate mitral valve leaflet thickening with bileaflet prolapse, posterior more than anterior, with a very eccentric jet of mitral regurgitation that is difficult to quantitate but likely in the mild to moderate range without any indirect evidence for more significant regurgitation although filling pressures and left atrial size have both increased since the previous study. While more notable on today's study, the previous study images were of reduced quality. There is no other significant valvular abnormality. The patient was in sinus rhythm at 53 to 58 bpm but was notably hypertensive at 159/95 at the time of the exam. Procedure: ?A two-dimensional transthoracic echocardiogram with color flow and Doppler was performed. The study quality was technically adequate. Comparison is made with the echocardiogram of 03/29/2022. The patient was in sinus bradycardia with heart rates between 53-58 bpm during the exam. Left Ventricle: ?The left ventricle is normal in size and wall thickness. The estimated left ventricular end diastolic volume is 125 ml. An apical false tendon is noted. Left ventricular systolic function appears normal without focal wall motion abnormalities. The ejection fraction is estimated to be 60- 65%. This is unchanged compared to the previous study. Grade II diastolic dysfunction with elevated left atrial pressure. This is likely higher compared to the previous study. Right Ventricle: ?The right ventricle is normal size. Right ventricular systolic function is at the lower limits of normal. This is unchanged compared to the previous study. Atria: ?The left atrium is moderately dilated. The left atrium has mildly increased in size since the prior echo exam. The right atrium is borderline dilated. This is unchanged compared to the previous study. There is no Doppler evidence for an interatrial shunt. Mitral Valve: ?The mitral valve leaflets appear moderately thickened. The mitral papillary muscle appears thickened and/or calcified. There is moderate mitral valve prolapse. Both leaflets are involved but the posterior more obviously than the anterior leaflet. There is mild to moderate mitral regurgitation. The mitral regurgitant jet is eccentrically directed. While the regurgitant jet is not well-seen, there is no indirect evidence for more significant mitral regurgitation. Aortic Valve:? ?The aortic valve is trileaflet. The aortic valve is mildly calcified. The aortic valve opens well. There is no aortic valve stenosis. No aortic regurgitation is present. Tricuspid Valve:? ?The tricuspid valve leaflets are thin and pliable. There is trace tricuspid regurgitation. Pulmonary artery pressures cannot be estimated because of the lack of a measurable TR jet velocity but the IVC suggests a CVP of around 3 mmHg. Pulmonic Valve: ?The pulmonic valve leaflets are thin and pliable;valve motion is normal. There is trace pulmonic regurgitation. Great Vessels:? ?The aortic root is normal size. The dimensions of the ascending aorta are normal. The IVC is of normal diameter and collapses greater than 50% with a sniff. This suggests a low right atrial pressure of 3 mm Hg. Pericardium/ Pleura ?There is no pericardial effusion. There is no pleural effusion. MMode/2D Measurements & Calculations LVIDd: 4.8 cm?LVOT diam: 2.2 cm LVIDs: 3.0 cm?Ao root diam: 3.5 cm FS: 37.0 %? asc Aorta Diam: 3.3 cm IVSd: 0.95 cm?Ao Arch Diam (Prox Trans): 2.7 cm LVPWd: 0.66 cm LV michele. diameter/BSA (cm/m^2): 2.3 LV sys. diameter/BSA (cm/m^2):1.4 LA A2 area: 26.3 cm2?RA long axis: 5.8 cm LA A4 area: 32.8 cm2?RA area: 20.3 cm2 LA length (vol): 7.0 cm? RA vol: 60.2 ml LA vol: 104.4 ml? RA : 28.6 ml/m2 LA vol index: 49.5 ml/m2 RVD1 (basal): 3.8 cm RVD2 (mid): 3.3 cm TAPSE: 2.5 cm Doppler Measurements & Calculations Ao V2 max: 162.7 cm/sec?LVOT Max Vargas: 125.2 cm/sec Ao V2 mean: 107.6 cm/sec?LV V1 max P.3 mmHg Ao max P.6 mmHg?LV V1 VTI: 23.1 cm Ao mean P.3 mmHg? JAYJAY(I,D): 2.8 cm2 Ao V2 VTI: 32.2 cm?JAYJAY(V,D): 3.0 cm2 sev ratio: 0.72 JAYJAY indexed to BSA (cm^2/m^2): 1.3 MV E max vargas: 130.3 cm/sec?TR max vargas: 256.7 cm/sec MV A max vargas: 113.8 cm/sec?TR max P.4 mmHg MV E/A: 1.1? PA V2 max: 81.0 cm/sec Med Peak E' Vargas: 5.9 cm/sec?PA V2 mean: 55.6 cm/sec E/E' med: 22.1? PA mean P.4 mmHg Lat Peak E' Vargas: 10.1 cm/sec?PA pr(Accel): 20.6 mmHg E/E' lat: 12.9 E/e' average:17.5 MV dec time: 0.28 sec SV(LVOT): 89.1 ml Reading Physician:10:21 AM
== END ==
LOC: ECHO 09:16
PROVIDERS: PCP Family Medicine; Referring Provider Specialist; Visit Provider Specialist
DX: I34.1 Nonrheumatic mitral (valve) prolapse (principal); I34.0 Nonrheumatic mitral (valve) insufficiency
CPT/HCPCS: 93306

== ENCOUNTER → 2025-05-16 10:30 | Outpatient (CLI) | payer MEDICARE, OTHER, SELFPAY ==
[2025-05-16 12:57] LABS: Magnesium 1.9 mg/dL (1.6-2.3)
== END ==
PROVIDERS: PCP Family Medicine; Referring Provider Family Medicine; Visit Provider Specialist
DX: I10 Essential (primary) hypertension (principal); E78.00 Pure hypercholesterolemia, unspecified
CPT/HCPCS: 36415; 80061; 83704; 83735

== ENCOUNTER → 2025-07-29 15:43 | Outpatient (CLI) | payer MEDICARE, OTHER, SELFPAY | PROVIDERS: PCP Family Medicine; Visit Provider Urology | DX: N40.1 Benign prostatic hyperplasia with lower urinary tract symptoms (principal) | CPT/HCPCS: 87086 ==